=== PATIENT | female | born 1940 | race Caucasian/White ===

== ENCOUNTER → 2017-02-24 | Outpatient (CLI) | payer MEDICARE, OTHER ==
--- NOTE | 2017-02-24 13:43 | Diagnostic Imaging Report ---
EXAMINATION: PA and lateral views of the chest. INDICATION: COPD. FINDINGS: The lungs demonstrate prominent interstitial markings which could be chronic. No prior studies are available to compare however. The heart size is mildly enlarged. No pneumothorax. There is minimal blunting of the posterior costophrenic angles which could relate to tiny effusions or pleural thickening. The mediastinum and jovana appear unremarkable. IMPRESSION: Cardiomegaly. Prominent interstitial markings, favored to be chronic. Dictated by: Dictated on workstation # [id number]
== END ==
LOC: RAD 12:20
PROVIDERS: ATTEND Nurse Practitioner Family
DX: I51.7 Cardiomegaly (principal); R91.8 Other nonspecific abnormal finding of lung field; R53.83 Other fatigue
CPT/HCPCS: 71020

== ENCOUNTER → 2017-03-07 | Outpatient (CLI) | payer MEDICARE, OTHER ==
[~2017-03-07] MED LIST: RT-ALBUTEROL SULF 2.5 MG/3 ML PRE-MIX VIAL IH ONE
== END ==
LOC: RT 11:30 → EDUNIT# 13:00
PROVIDERS: ATTEND Nurse Practitioner Family
DX: J44.9 Chronic obstructive pulmonary disease, unspecified (principal); R53.83 Other fatigue
CPT/HCPCS: 94060; 94640; 94726; 94729

== ENCOUNTER → 2017-03-31 | Outpatient (CLI) | payer MEDICARE, OTHER ==
[2017-03-31 11:53] LABS: ALBUMIN 4.6 GM/DL (3.2-4.5); BILIRUBIN,TOTAL 0.5 MG/DL (0.1-1.0); CALCIUM 9.9 MG/DL (8.5-10.1); CREATININE SERUM 1.63 MG/DL (0.60-1.30); POTASSIUM 4.8 MMOL/L (3.6-5.0); TOTAL PROTEIN 7.7 GM/DL (6.4-8.2)
[2017-03-31 12:01] LABS: BASOPHILS % (AUTO) 1 % (0-10); EOSINOPHILS # (AUTO) 0.2 10^3/uL (0.0-0.3); EOSINOPHILS % (AUTO) 3 % (0-10); LYMPHOCYTES # (AUTO) 1.3 X 10^3 (1.0-4.0); LYMPHOCYTES % (AUTO) 22 % (12-44); MEAN CORPUSCULAR HEMOGLOBIN 30 PG (25-34); MEAN CORPUSCULAR HGB CONC 32 G/DL (32-36); MEAN CORPUSCULAR VOLUME 93 FL (80-99); MEAN PLATELET VOLUME 10.7 FL (7.4-10.4); MONOCYTES # (AUTO) 0.8 X 10^3 (0.0-1.0); MONOCYTES % (AUTO) 14 % (0-12); NEUTROPHILS # (AUTO) 3.4 X 10^3 (1.8-7.8); NEUTROPHILS % (AUTO) 60 % (42-75); PLATELET COUNT 242 10^3/uL (130-400); RED CELL DISTRIBUTION WIDTH 14.1 % (10.0-14.5); WHITE BLOOD COUNT 5.7 10^3/uL (4.3-11.0)
[2017-03-31 12:36] LABS: BASOPHILS % (MANUAL) 0 %; EOSINOPHILS % (MANUAL) 3 %; LYMPHOCYTES % (MANUAL) 29 %; NEUTROPHILS % (MANUAL) 57 %
--- NOTE | 2017-03-31 14:49 | Diagnostic Imaging Report ---
PROCEDURE: CT chest without contrast. TECHNIQUE: Multiple contiguous axial images were obtained through the chest without the use of intravenous contrast. INDICATION: Shortness of breath. COPD. FINDINGS: There is a groundglass opacity seen in the inferior lingula which is favored to be related to mild atelectasis or scarring. Minimal bibasilar septal thickening is also favored to be scarring. There is minimal scarring or atelectasis also suggested in the right lung base. Minimal emphysema changes are seen in the upper lobes. No bronchiectasis. No significant consolidation, mass or suspicious nodule seen otherwise. The heart is borderline in size. No pericardial or pleural effusion. The thoracic aorta is normal in caliber. No mediastinal mass. No significantly enlarged mediastinal or hilar lymph nodes is seen. Sections in the upper abdomen demonstrate bilateral renal arterial stents. 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 Mild degenerative changes in the thoracic spine seen. IMPRESSION: There is suggestion of bibasilar mild nonspecific scarring. Minimal emphysema changes. Dictated by: Dictated on workstation # [id number]
== END ==
LOC: RAD 11:10
PROVIDERS: ATTEND Nurse Practitioner Family
DX: R94.2 Abnormal results of pulmonary function studies (principal); R06.00 Dyspnea, unspecified
CPT/HCPCS: 36415; 71250; 80053; 83880; 85007; 85027

== ENCOUNTER 2017-10-04 13:00 | Outpatient (RCR) | payer MEDICARE, OTHER ==
[2017-09-13 09:25] VITALS: BP 120/70
[2017-09-13 10:05] VITALS: BP 110/64
[2017-09-15 13:00] VITALS: BP 118/60
[2017-09-15 14:00] VITALS: BP 127/56
[2017-09-20 10:05] VITALS: BP 127/56
[2017-09-20 13:05] VITALS: BP 120/50
[2017-09-20 13:55] VITALS: BP 140/60
[2017-09-22 13:00] VITALS: BP 115/60
[2017-09-22 14:00] VITALS: BP 120/60
[2017-10-04 13:00] VITALS: BP 128/63
[2017-10-04 14:00] VITALS: BP 117/50
== END 2017-10-09 | disposition home or self-care (01) ==
LOC: PULM 13:00
PROVIDERS: ATTEND Internal Medicine Critical Care Medicine
DX: J44.9 Chronic obstructive pulmonary disease, unspecified (principal); R06.00 Dyspnea, unspecified; R53.83 Other fatigue; G47.33 Obstructive sleep apnea (adult) (pediatric); J30.2 Other seasonal allergic rhinitis
CPT/HCPCS: 99211

== ENCOUNTER → 2019-03-01 | Outpatient (CLI) | payer MEDICARE, OTHER ==
[2019-03-01 11:15] LABS: CREATININE SERUM 2.15 MG/DL (0.60-1.30)
--- NOTE | 2019-03-01 14:04 | Diagnostic Imaging Report ---
EXAMINATION: CT Chest without contrast. TECHNIQUE: Multiple contiguous axial images were obtained through the chest without the use of intravenous contrast. All CT scans use one or more of the following dose optimizing techniques: automated exposure control, MA and/or KvP adjustment based on a patient size and exam type, or iterative reconstruction. HISTORY: COPD. FINDINGS: Comparison is 03/31/2017. There is mosaic perfusion. No edema or pneumonia. No pleural effusion or pneumothorax. There is scarring in the lung apices. No suspicious pulmonary nodules are seen. There is differential attenuation of the myocardium and blood pool in keeping with anemia. There moderate coronary artery calcifications. Aorta is normal in caliber. There is no axillary, supraclavicular or mediastinal lymphadenopathy. Limited views of the upper abdomen are unremarkable. There is asymmetric soft tissue in the right breast compared to the left. There are no suspicious osseous lesions. IMPRESSION: 1. 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 2. Asymmetric soft tissue in the right breast, correlate with recent mammography. If one is not available, a diagnostic mammography is recommended. 3. Differential attenuation of the myocardium and blood pool in keeping with anemia. Dictated by: Dictated on workstation # [id number]
== END ==
LOC: RAD 10:40
PROVIDERS: ATTEND Nurse Practitioner Family
DX: J44.9 Chronic obstructive pulmonary disease, unspecified (principal); R00.2 Palpitations; J98.4 Other disorders of lung
CPT/HCPCS: 36415; 71250; 82565; 84520

== ENCOUNTER → 2019-04-30 | Outpatient (CLI) | payer MEDICARE, OTHER ==
--- NOTE | 2019-04-30 16:59 | Diagnostic Imaging Report ---
PROCEDURE: CT chest without contrast. TECHNIQUE: Multiple contiguous axial images were obtained through the chest without the use of intravenous contrast. Auto Exposure Controls were utilized during the CT exam to meet ALARA standards for radiation dose reduction. INDICATION: Dyspnea, shortness of air, COPD, seasonal allergies. COMPARISON: Exam compared 03/01/2019. FINDINGS: There has been resolution of the previous mosaic attenuation pattern of the lung parenchyma predominantly in the upper lobes. No acute infiltrate. No parenchymal destructive changes. No bronchiectasis, blebs, bullous disease or air cysts. There is no evidence for mass or lymphadenopathy. The calcified aorta is nonaneurysmal. No effusion or pneumothorax. No acute chest wall pathology. IMPRESSION: 1. Clear lungs on follow-up. No mass or acute abnormality. 2. Not mentioned above, we again note asymmetric parenchymal density in the right breast superiorly of uncertain etiology but would reiterate recommendation for diagnostic mammography unless recent screening views are available to demonstrate a benign explanation. Dictated by: Dictated on workstation # [id number]
== END ==
LOC: RAD 11:35
PROVIDERS: ATTEND Internal Medicine Critical Care Medicine
DX: J44.9 Chronic obstructive pulmonary disease, unspecified (principal); J30.2 Other seasonal allergic rhinitis; R92.8 Other abnormal and inconclusive findings on diagnostic imaging of breast
CPT/HCPCS: 71250